=== PATIENT | female | born 1995 | race African-American/Black ===

== ENCOUNTER 2016-06-05 12:29 | Inpatient (IN) | payer OTHER ==
[~2016-06-05] VITALS: Ht 162.6 cm; Wt 76.2 kg
[2016-06-05] VITALS (27 sets, daily range): BP systolic 70–107; BP diastolic 39–53
[~2016-06-05 12:29] MED LIST: ALBU6.7H INH; INSU3INS6 SUBCUT; humalog SUBCUT
[2016-06-05] MEDS ORDERED: SODIUM CHLORIDE 0.9% 1000ML BAG (SEPSIS BOLUS) IV ONE ×2 (13:00→14:30)
[2016-06-05 13:25] LABS: HEMATOCRIT. 47.2 % (36.0-48.0); HEMOGLOBIN. 12.3 g/dL (12.0-16.0); MEAN CORPUSCULAR HEMOGLOBIN 28.2 pg (28.0-32.0); MEAN CORPUSCULAR HGB CONC 26.2 g/dL (31.0-37.0); MEAN CORPUSCULAR VOLUME 107.7 fL (81.0-99.0); MEAN PLATELET VOLUME 8.9 fl (7.4-10.4); PLATELET 345 x1000/uL (130-400); RED BLOOD CELL COUNT 4.38 mill/uL (4.2-5.4); RED CELL DISTRIBUTION WIDTH 15.1 % (11.6-14.6); WHITE BLOOD COUNT 28.3 x1000/uL (4.5-11.0)
[2016-06-05 13:26] LABS: CLARITY URINE CLOUDY (CLEAR); COLOR URINE YELLOW (YELLOW); GLUCOSE URINE 3+ (NEGATIVE); KETONES URINE 1+ (NEGATIVE); LEUKOCYTE ESTERASE URINE NEGATIVE (NEGATIVE); NITRITE URINE NEGATIVE (NEGATIVE); OCCULT BLOOD URINE 3+ (NEGATIVE); PROTEIN URINE 2+ (NEGATIVE); SPECIFIC GRAVITY URINE 1.029 (1.005-1.030); UROBILINOGEN URINE 0.2 E.U./dL (0.2-1.0)
[2016-06-05 13:27] LABS: DIFFERENTIAL COMMENT 1
[2016-06-05 13:32] LABS: INR 1.1; PROTHROMBIN TIME 11.8 sec
[2016-06-05 13:38] LABS: *AMPHETAMINES SCREEN URINE NEGATIVE (NEGATIVE); *BARBITURATES SCREEN URINE NEGATIVE (NEGATIVE); *BENZODIAZEPINES SCREEN URINE NEGATIVE (NEGATIVE); *COCAINE SCREEN URINE NEGATIVE (NEGATIVE); CANNABINOID URINE SCREEN NEGATIVE (NEGATIVE); ECSTASY MDMA SCREEN URINE NEGATIVE (NEGATIVE); METHADONE URINE SCREEN NEGATIVE (NEGATIVE); PHENCYCLIDINE URINE SCREEN NEGATIVE (NEGATIVE)
[2016-06-05 13:39] LABS: ANION GAP 35; CHLORIDE 95 mEq/L (98-107); UREA NITROGEN BLOOD 52 mg/dL (7-21)
[2016-06-05 13:40] LABS: ALANINE AMINOTRANSFERASE 37 IU/L (13-61); ALBUMIN 3.7 g/dL (3.4-5.0); CALCIUM 8.7 mg/dL (8.5-10.1); ETHANOL BLOOD < 10 mg/dL; INDEX HEMOLYSI 2 (1-3); INDEX ICTERIC 1 (1-4); INDEX LIPEMIC 1 (1-3); eGFR 28 mL/min (>60)
[2016-06-05 13:43] LABS: BACTERIA URINE 1+; OPIATES URINE SCREEN PRESUMTIVE POSITIVE (NEGATIVE); SQUAMOUS EPITHELIAL CELL URINE 1+ /lpf (RARE/1+)
[2016-06-05 13:44] LABS: CARBON DIOXIDE 5 mEq/L (21-32); LACTIC ACID 2.6 mmol/L (0.4-2.0)
[2016-06-05 13:45] LABS: RBC URINE 0-2 /hpf (0-2)
[2016-06-05] MEDS ORDERED: INSULIN REGULAR (DRIP) 100 UNITS in SODIUM CHLORIDE 0.9% 100 ML IV ONE (13:45)
[2016-06-05 13:47] LABS: ANISOCYTOSIS 1+; PLATELET ESTIMATE NORMAL
[2016-06-05] MEDS ORDERED: INSULIN REGULAR (DRIP) 100 UNITS in SODIUM CHLORIDE 0.9% 99 ML IV ONE (14:00)
[2016-06-05 14:19] LABS: BG BASE EXCESS -30.7 mmol/L (-2.0-2.0); BG CARBOXYHEMOGLOBIN 0.3 % (0.5-1.5); BG DEOXYHEMOGLOBIN 0.5 % (0.0-5.0); BG FRACTION INSPIRED OXYGEN 100; BG HCO3 ACT 2.6 mmol/L (22.0-26.0); BG METHEMOGLOBIN 0.5 % (0.0-1.5); BG OXYGEN SATURATION 99.5 % (92.0-98.5); BG OXYHEMOGLOBIN 98.7 % (94.0-97.0); BG PCO2 16.8 mmHg (35.0-45.0); BG PH 6.808 (7.350-7.450); BG PO2 350.8 mmHg (75.0-100.0); BG SAMPLE SITE RIGHT BRACHIAL; BG TOTAL HEMOGLOBIN 11.8 g/dL (12.0-18.0); BG VENT MODE MASK - NRB
[2016-06-05] MEDS ORDERED: ETOMIDATE 2MG/ML 10ML VIAL IV ONE (14:25)
[2016-06-05] MEDS ORDERED: SUCCINYLCHOLINE CHLORIDE 200MG/10ML VIAL IV ONE (14:25)
[2016-06-05] MEDS ORDERED: DOPAMINE 400MG PREMIX 250 ML IV NR (14:30)
[2016-06-05] MEDS ORDERED: SODIUM CHLORIDE 0.9% 1,000 ML IV STA (14:31)
[2016-06-05] MEDS ORDERED: INSULIN REGULAR (DRIP) 100 UNITS in SODIUM CHLORIDE 0.9% 100 ML IV NR (14:31)
[2016-06-05] MEDS ORDERED: FUROSEMIDE 100MG/10ML VIAL IV NR (14:31)
[2016-06-05] MEDS ORDERED: SODIUM POLYSTYRENE SULFONATE 15 G/60 ML BOT PO NR (14:45)
[2016-06-05] MEDS ORDERED: CALCIUM CHLORIDE 1000 MG in DEXTROSE 5% WATER 100 ML IV NR (14:45)
[2016-06-05] MEDS ORDERED: SODIUM CHLORIDE 0.9% 1,000 ML IV NR (14:45)
[2016-06-05] MEDS ORDERED: DEXTROSE 50% WATER 50ML SYRINGE IV NR (14:45)
[2016-06-05] MEDS ORDERED: SODIUM BICARBONATE 8.4% 1 MEQ/ML 50ML SYR IV NR (14:45)
[2016-06-05] MEDS ORDERED: SODIUM CHLORIDE 0.9% 1,000 ML IV SCH ×2 (14:45→18:15)
[2016-06-05] MEDS ORDERED: INSULIN REGULAR (HUMULIN R) 300UNITS/3ML IV NR (14:45)
[2016-06-05] MEDS ORDERED: CALCIUM CHLORIDE 1GM/10ML SYR IV ONE (14:45)
[2016-06-05] MEDS ORDERED: ALBUTEROL (0.083%) 2.5MG/3ML NEB HHN NR (14:45)
[2016-06-05 16:19] LABS: CALCIUM 7.5 mg/dL (8.5-10.1); MAGNESIUM 3.7 mg/dL (1.8-2.4); PHOSPHORUS 7.8 mg/dL (2.5-4.9)
[2016-06-05] MEDS ORDERED: NALOXONE HCL 1 MG/ML 2ML VIAL IV ONE (16:45)
[2016-06-05] MEDS ORDERED: SODIUM BICARBONATE 8.4% 1 MEQ/ML 50ML SYR IV ONE (16:45)
[2016-06-05 16:49] LABS: BG BASE EXCESS -22.7 mmol/L (-2.0-2.0); BG CARBOXYHEMOGLOBIN 0.3 % (0.5-1.5); BG DEOXYHEMOGLOBIN 1.2 % (0.0-5.0); BG FRACTION INSPIRED OXYGEN 24; BG HCO3 ACT 5.4 mmol/L (22.0-26.0); BG METHEMOGLOBIN 0.5 % (0.0-1.5); BG OXYGEN SATURATION 98.8 % (92.0-98.5); BG PCO2 18.5 mmHg (35.0-45.0); BG PH 7.082 (7.350-7.450); BG PO2 149.8 mmHg (75.0-100.0); BG SAMPLE SITE LEFT RADIAL; BG TOTAL HEMOGLOBIN 11.9 g/dL (12.0-18.0); BG VENT MODE NASAL CANNULA
[2016-06-05] MEDS ORDERED: DEXTROSE 50% WATER 50ML SYRINGE IV PRN ×2 (18:15→18:30)
[2016-06-05] MEDS ORDERED: INSULIN REGULAR (DRIP) 100 UNITS in SODIUM CHLORIDE 0.9% 99 ML IV PRN (18:15)
[2016-06-05] MEDS ORDERED: INSULIN REGULAR (DRIP) 100 UNITS in SODIUM CHLORIDE 0.9% 100 ML IV SCH (18:17)
[2016-06-05 18:37] LABS: CALCIUM 8.6 mg/dL (8.5-10.1); MAGNESIUM 3.2 mg/dL (1.8-2.4); PHOSPHORUS 4.7 mg/dL (2.5-4.9)
[2016-06-05] MEDS ORDERED: NOREPINEPHRINE 4 MG in DEXT 5% WATER 246 ML IV PRN (19:00)
[2016-06-05] MEDS ORDERED: POTASSIUM ACETATE 20 MEQ in SODIUM CHLORIDE 0.9% 1,000 ML IV SCH ×2 (19:00→19:14)
[2016-06-05 19:05] LABS: BG BASE EXCESS -25.2 mmol/L (-2.0-2.0); BG CARBOXYHEMOGLOBIN 0.3 % (0.5-1.5); BG FRACTION INSPIRED OXYGEN 40; BG HCO3 ACT 3.6 mmol/L (22.0-26.0); BG METHEMOGLOBIN 0.2 % (0.0-1.5); BG OXYHEMOGLOBIN 98.5 % (94.0-97.0); BG PH 7.032 (7.350-7.450); BG PO2 191.4 mmHg (75.0-100.0); BG SAMPLE SITE RIGHT RADIAL; BG TOTAL HEMOGLOBIN 12.5 g/dL (12.0-18.0); BG VENT MODE NASAL CPAP
[2016-06-05] MEDS: BLOOD SUGAR DIAGNOSTIC STRIP TEST SCH ×4 (20:06→23:44)
[2016-06-05] MEDS: ENOXAPARIN 30MG/0.3ML SYR SUBCUT SCH (20:07)
[2016-06-05 20:20] LABS: CALCIUM 8.6 mg/dL (8.5-10.1); PHOSPHORUS 2.1 mg/dL (2.5-4.9)
[2016-06-05] MEDS ORDERED: POTASSIUM CHLORIDE INJ 20 MEQ in DEXT 5% WATER 250 ML IV NR (21:00)
[2016-06-05] MEDS ORDERED: BLOOD SUGAR DIAGNOSTIC STRIP TEST SCH (21:00)
[2016-06-05] MEDS ORDERED: SODIUM CHL 0.9% + KCL 20MEQ/L 1,000 ML IV SCH (21:00)
[2016-06-05] MEDS: INSULIN REGULAR (DRIP) 100 UNITS in SODIUM CHLORIDE 0.9% 99 ML IV SCH (22:13)
[2016-06-05] MEDS: NOREPINEPHRINE 8 MG in DEXT 5% WATER 242 ML IV PRN (22:16)
[2016-06-05] MEDS ORDERED: PROPOFOL 10MG/ML 100ML 100 ML IV PRN (23:45)
[2016-06-05] MEDS ORDERED: PHENYLEPHRINE 10 MG in DEXT 5% WATER 249 ML IV PRN (23:45)
[2016-06-06] VITALS (97 sets, daily range): BP systolic 80–164; BP diastolic 41–94
[2016-06-06] MEDS: BLOOD SUGAR DIAGNOSTIC STRIP TEST SCH ×24 (00:23→23:00)
[2016-06-06] MEDS: FENTANYL CITRATE/PF 500 MCG in SODIUM CHLORIDE 0.9% 40 ML IV PRN ×2 (00:54→19:00)
[2016-06-06] MEDS: MIDAZOLAM HCL 50 MG in DEXTROSE 5% WATER 40 ML IV PRN ×2 (00:55→10:25)
[2016-06-06 01:27] LABS: CALCIUM 8.6 mg/dL (8.5-10.1)
[2016-06-06] MEDS: INSULIN REGULAR (DRIP) 100 UNITS in SODIUM CHLORIDE 0.9% 99 ML IV SCH ×3 (01:40→23:46)
[2016-06-06] MEDS ORDERED: POTASSIUM ACETATE IV SCH (02:00)
[2016-06-06] MEDS ORDERED: SODIUM BICARBONATE IV SCH (02:00)
[2016-06-06] MEDS ORDERED: [UNRECOGNIZED DRUG - OTHER] IV SCH (02:00)
[2016-06-06] MEDS: NOREPINEPHRINE 8 MG in DEXT 5% WATER 242 ML IV PRN ×2 (02:27→08:35)
[2016-06-06 04:27] LABS: CALCIUM 8.5 mg/dL (8.5-10.1)
[2016-06-06 04:45] LABS: TROPONIN I 2.1 ng/mL (0.00-0.04)
[2016-06-06] MEDS ORDERED: SODIUM BICARBONATE IV ONE (05:00)
[2016-06-06] MEDS ORDERED: POTASSIUM ACETATE IV ONE (05:00)
[2016-06-06] MEDS ORDERED: [UNRECOGNIZED DRUG - OTHER] IV ONE (05:00)
[2016-06-06] MEDS ORDERED: KCL 20MEQ/100ML PREMIX 100 ML IV NR (06:00)
[2016-06-06] MEDS ORDERED: [UNRECOGNIZED DRUG - REMARK] XX SCH (06:00)
[2016-06-06] MEDS: DEXT 5% WATER + KCL 20MEQ/L 1,000 ML IV SCH ×3 (06:15→18:43)
[2016-06-06 07:10] LABS: BG BASE EXCESS -7.4 mmol/L (-2.0-2.0); BG CARBOXYHEMOGLOBIN 0.3 % (0.5-1.5); BG DEOXYHEMOGLOBIN 0.6 % (0.0-5.0); BG HCO3 ACT 17.9 mmol/L (22.0-26.0); BG METHEMOGLOBIN 0.5 % (0.0-1.5); BG OXYGEN SATURATION 99.4 % (92.0-98.5); BG OXYHEMOGLOBIN 98.6 % (94.0-97.0); BG PCO2 35.7 mmHg (35.0-45.0); BG PH 7.318 (7.350-7.450); BG PO2 400.8 mmHg (75.0-100.0); BG SAMPLE SITE RIGHT RADIAL; BG TIDAL VOLUME(mL) 500 mL; BG TOTAL HEMOGLOBIN 11.8 g/dL (12.0-18.0); BG VENT MODE VENT - A/C; BG VENT RATE 12 set
[2016-06-06] MEDS: PHENYLEPHRINE 40 MG in DEXT 5% WATER 496 ML IV PRN ×2 (07:59→11:32)
[2016-06-06] MEDS: PIPERACILLIN/TAZ 3.375G PREMIX 50 ML IV SCH ×2 (08:03→13:09)
[2016-06-06 08:17] LABS: CALCIUM 8.1 mg/dL (8.5-10.1)
[2016-06-06] MEDS ORDERED: PANTOPRAZOLE SODIUM 40 MG/VIAL IV SCH (09:00)
[2016-06-06] MEDS ORDERED: VANCOMYCIN 1250MG in DEXTROSE 5% WATER 250ML IV NR (09:00)
[2016-06-06 09:54] LABS: CREATINE KINASE MB FRACTION 114.8 ng/mL (0.5-3.6)
[2016-06-06 10:05] LABS: HEMATOCRIT. 32.6 % (36.0-48.0); HEMOGLOBIN. 10.7 g/dL (12.0-16.0); MEAN CORPUSCULAR HEMOGLOBIN 27.6 pg (28.0-32.0); MEAN CORPUSCULAR HGB CONC 32.8 g/dL (31.0-37.0); MEAN PLATELET VOLUME 8.1 fl (7.4-10.4); PLATELET 241 x1000/uL (130-400); RED BLOOD CELL COUNT 3.88 mill/uL (4.2-5.4); RED CELL DISTRIBUTION WIDTH 13.9 % (11.6-14.6); WHITE BLOOD COUNT 8.7 x1000/uL (4.5-11.0)
[2016-06-06 10:11] LABS: DIFFERENTIAL COMMENT 1
[2016-06-06 10:42] LABS: PLATELET ESTIMATE NORMAL
[2016-06-06 12:00] LABS: UCG SCREEN NEGATIVE
[2016-06-06] MEDS ORDERED: POTASSIUM CHLORIDE INJ 20 MEQ in DEXT 5%/0.9% NACL 1,000 ML IV SCH (13:00)
[2016-06-06] MEDS: IPRATROPIUM/ALBUTEROL 0.5-3(2.5)MG/3ML NEB HHN SCH ×2 (13:38→20:09)
[2016-06-06] MEDS: PHENYLEPHRINE 80 MG in DEXT 5% WATER 492 ML IV PRN ×2 (15:45→23:02)
[2016-06-06] MEDS: CLINDAMYCIN 600 MG in DEXTROSE 5% WATER 50 ML IV SCH (17:51)
[2016-06-06] MEDS: MEROPENEM 1,000 MG in SODIUM CHLORIDE 0.9% 100 ML IV SCH (20:03)
[2016-06-06] MEDS: ENOXAPARIN 30MG/0.3ML SYR SUBCUT SCH (20:03)
[2016-06-07] VITALS (91 sets, daily range): BP systolic 70–123; BP diastolic 44–81
[2016-06-07] MEDS: BLOOD SUGAR DIAGNOSTIC STRIP TEST SCH ×24 (00:26→23:00)
[2016-06-07] MEDS: DEXT 5% WATER + KCL 20MEQ/L 1,000 ML IV SCH (01:04)
[2016-06-07] MEDS: CLINDAMYCIN 600 MG in DEXTROSE 5% WATER 50 ML IV SCH ×3 (01:05→17:52)
[2016-06-07] MEDS: IPRATROPIUM/ALBUTEROL 0.5-3(2.5)MG/3ML NEB HHN SCH ×3 (01:23→14:39)
[2016-06-07] MEDS ORDERED: VANCOMYCIN 1 G PREMIX 200 ML IV SCH ×2 (03:00→21:00)
[2016-06-07 05:15] LABS: HEMATOCRIT. 32.1 % (36.0-48.0); HEMOGLOBIN. 10.6 g/dL (12.0-16.0); MEAN CORPUSCULAR HEMOGLOBIN 28.1 pg (28.0-32.0); MEAN CORPUSCULAR HGB CONC 32.9 g/dL (31.0-37.0); MEAN CORPUSCULAR VOLUME 85.4 fL (81.0-99.0); MEAN PLATELET VOLUME 8.1 fl (7.4-10.4); PLATELET 161 x1000/uL (130-400); RED BLOOD CELL COUNT 3.75 mill/uL (4.2-5.4); RED CELL DISTRIBUTION WIDTH 14.9 % (11.6-14.6); WHITE BLOOD COUNT 12.1 x1000/uL (4.5-11.0)
[2016-06-07 05:16] LABS: DIFFERENTIAL COMMENT 1
[2016-06-07 05:37] LABS: CALCIUM 7.5 mg/dL (8.5-10.1); MAGNESIUM 1.9 mg/dL (1.8-2.4); PHOSPHORUS 1.4 mg/dL (2.5-4.9); T4 FREE 1.07 ng/dL (0.76-1.46)
[2016-06-07] MEDS: PHENYLEPHRINE 80 MG in DEXT 5% WATER 492 ML IV PRN ×3 (06:09→21:24)
[2016-06-07 07:24] LABS: BG BASE EXCESS -10.4 mmol/L (-2.0-2.0); BG CARBOXYHEMOGLOBIN 0.3 % (0.5-1.5); BG DEOXYHEMOGLOBIN 0.9 % (0.0-5.0); BG FRACTION INSPIRED OXYGEN 40; BG HCO3 ACT 14.8 mmol/L (22.0-26.0); BG METHEMOGLOBIN 0.1 % (0.0-1.5); BG OXYGEN SATURATION 99.1 % (92.0-98.5); BG OXYHEMOGLOBIN 98.7 % (94.0-97.0); BG PCO2 30.6 mmHg (35.0-45.0); BG PH 7.302 (7.350-7.450); BG PO2 179.5 mmHg (75.0-100.0); BG SAMPLE SITE RIGHT BRACHIAL; BG TIDAL VOLUME(mL) 500 mL; BG TOTAL HEMOGLOBIN 11.5 g/dL (12.0-18.0); BG VENT MODE VENT - A/C; BG VENT RATE 12 set
[2016-06-07 07:49] LABS: PLATELET ESTIMATE NORMAL
[2016-06-07] MEDS: MEROPENEM 1,000 MG in SODIUM CHLORIDE 0.9% 100 ML IV SCH ×2 (08:14→21:24)
[2016-06-07] MEDS: FAMOTIDINE 20MG/2ML VIAL IV SCH (08:24)
[2016-06-07] MEDS ORDERED: SODIUM PHOS,M-BASIC-D-BASIC 15 MM in DEXT 5% WATER 245 ML IV NR (09:00)
[2016-06-07] MEDS: SODIUM BICARBONATE 50 MEQ in DEXT 5%/0.45% NACL 1000ML 1,000 ML IV SCH ×2 (09:29→16:50)
[2016-06-07] MEDS: ASPIRIN 81MG EC TABLET PO SCH (10:05)
[2016-06-07 11:40] LABS: AMMONIA 26 uMol/L (<32); INDEX HEMOLYSI 1 (1-3)
[2016-06-07 11:48] LABS: T4 FREE 1.28 ng/dL (0.76-1.46)
[2016-06-07 11:50] LABS: T3 FREE 1.29 pg/ml (2.18-3.98); THYROID STIMULATING HORMONE 1.8 uIU/mL (0.36-3.74)
[2016-06-07 12:03] LABS: INDEX HEMOLYSI 1 (1-3)
[2016-06-07 12:42] LABS: VITAMIN B12 SERUM > 2000 pg/mL (211-911)
[2016-06-07] MEDS: INSULIN REGULAR (DRIP) 100 UNITS in SODIUM CHLORIDE 0.9% 99 ML IV SCH (14:36)
[2016-06-07 17:18] LABS: BG BASE EXCESS -17.3 mmol/L (-2.0-2.0); BG CARBOXYHEMOGLOBIN 0.3 % (0.5-1.5); BG DEOXYHEMOGLOBIN 9.8 % (0.0-5.0); BG FRACTION INSPIRED OXYGEN 50; BG HCO3 ACT 9.2 mmol/L (22.0-26.0); BG METHEMOGLOBIN 0.3 % (0.0-1.5); BG OXYGEN SATURATION 90.1 % (92.0-98.5); BG OXYHEMOGLOBIN 89.6 % (94.0-97.0); BG PCO2 24.7 mmHg (35.0-45.0); BG PO2 57.7 mmHg (75.0-100.0); BG SAMPLE SITE RIGHT RADIAL; BG TIDAL VOLUME(mL) 500 mL; BG VENT MODE VENT - A/C; BG VENT RATE 12 set
[2016-06-07] MEDS: MIDAZOLAM HCL 50 MG in DEXTROSE 5% WATER 40 ML IV PRN (18:15)
[2016-06-07] MEDS: NOREPINEPHRINE 8 MG in DEXT 5% WATER 242 ML IV PRN (19:25)
[2016-06-07] MEDS: ENOXAPARIN 30MG/0.3ML SYR SUBCUT SCH (21:30)
[2016-06-08] VITALS (90 sets, daily range): BP systolic 65–113; BP diastolic 35–76
[2016-06-08] MEDS: BLOOD SUGAR DIAGNOSTIC STRIP TEST SCH ×24 (00:52→23:57)
[2016-06-08] MEDS: SODIUM BICARBONATE 50 MEQ in DEXT 5%/0.45% NACL 1000ML 1,000 ML IV SCH ×4 (00:55→21:41)
[2016-06-08] MEDS: CLINDAMYCIN 600 MG in DEXTROSE 5% WATER 50 ML IV SCH ×3 (01:26→18:22)
[2016-06-08] MEDS: IPRATROPIUM/ALBUTEROL 0.5-3(2.5)MG/3ML NEB HHN SCH ×4 (02:00→20:33)
[2016-06-08] MEDS: PHENYLEPHRINE 80 MG in DEXT 5% WATER 492 ML IV PRN ×3 (05:02→19:59)
[2016-06-08 05:03] LABS: BASOPHILS % 0.4 % (0.0-2.0); DIFFERENTIAL COMMENT 0; EOSINOPHILS % 0.3 % (0.0-5.0); HEMATOCRIT. 33.3 % (36.0-48.0); LYMPHOCYTES % 11.3 % (20.0-50.0); MEAN CORPUSCULAR HEMOGLOBIN 27.8 pg (28.0-32.0); MEAN CORPUSCULAR VOLUME 84.2 fL (81.0-99.0); MEAN PLATELET VOLUME 8.1 fl (7.4-10.4); MONOCYTES % 5.3 % (2.0-8.0); NEUTROPHILS % 82.7 % (40.0-76.0); PLATELET 148 x1000/uL (130-400); RED BLOOD CELL COUNT 3.96 mill/uL (4.2-5.4); RED CELL DISTRIBUTION WIDTH 14.8 % (11.6-14.6); WHITE BLOOD COUNT 10.8 x1000/uL (4.5-11.0)
[2016-06-08 05:28] LABS: CALCIUM 7.8 mg/dL (8.5-10.1); MAGNESIUM 2.2 mg/dL (1.8-2.4)
[2016-06-08 06:04] LABS: TROPONIN I 8.7 ng/mL (0.00-0.04)
[2016-06-08 06:54] LABS: BG BASE EXCESS -4.8 mmol/L (-2.0-2.0); BG CARBOXYHEMOGLOBIN 0.1 % (0.5-1.5); BG DEOXYHEMOGLOBIN 1.2 % (0.0-5.0); BG HCO3 ACT 19.4 mmol/L (22.0-26.0); BG METHEMOGLOBIN 0.1 % (0.0-1.5); BG OXYGEN SATURATION 98.8 % (92.0-98.5); BG OXYHEMOGLOBIN 98.6 % (94.0-97.0); BG PCO2 32.8 mmHg (35.0-45.0); BG SAMPLE SITE RIGHT RADIAL; BG TIDAL VOLUME(mL) 500 mL; BG VENT MODE VENT - A/C; BG VENT RATE 12 set
[2016-06-08] MEDS: MEROPENEM 1,000 MG in SODIUM CHLORIDE 0.9% 100 ML IV SCH ×2 (07:44→20:58)
[2016-06-08] MEDS: FAMOTIDINE 20MG/2ML VIAL IV SCH (07:46)
[2016-06-08] MEDS: ASPIRIN 81MG EC TABLET PO SCH (07:46)
[2016-06-08] MEDS: INSULIN REGULAR (DRIP) 100 UNITS in SODIUM CHLORIDE 0.9% 99 ML IV SCH (10:16)
[2016-06-08] MEDS: VANCOMYCIN 1 G PREMIX 200 ML IV SCH (12:10)
[2016-06-08] MEDS ORDERED: POTASSIUM PHOS,M-BASIC-D-BASIC 20 MMOL in DEXT 5% WATER 243.3333 ML IV NR (14:00)
[2016-06-08 15:07] LABS: *CREATININE RANDOM URINE 33.3 mg/dL (Not Estab.); MICROALBUMIN RANDOM URINE 80.6 ug/mL (Not Estab.)
[2016-06-08] MEDS: ENOXAPARIN 30MG/0.3ML SYR SUBCUT SCH (20:58)
[2016-06-08] MEDS: MIDAZOLAM HCL 50 MG in DEXTROSE 5% WATER 40 ML IV PRN (22:07)
[2016-06-09] VITALS (89 sets, daily range): BP systolic 80–123; BP diastolic 40–82
[2016-06-09] MEDS: IPRATROPIUM/ALBUTEROL 0.5-3(2.5)MG/3ML NEB HHN SCH ×5 (01:05→20:56)
[2016-06-09] MEDS: CLINDAMYCIN 600 MG in DEXTROSE 5% WATER 50 ML IV SCH ×2 (01:06→09:31)
[2016-06-09] MEDS: BLOOD SUGAR DIAGNOSTIC STRIP TEST SCH ×14 (01:07→18:00)
[2016-06-09] MEDS: FENTANYL CITRATE/PF 500 MCG in SODIUM CHLORIDE 0.9% 40 ML IV PRN (04:03)
[2016-06-09] MEDS: MIDAZOLAM HCL 50 MG in DEXTROSE 5% WATER 40 ML IV PRN ×2 (04:40→20:29)
[2016-06-09] MEDS: PHENYLEPHRINE 80 MG in DEXT 5% WATER 492 ML IV PRN ×2 (04:40→13:54)
[2016-06-09 05:31] LABS: BASOPHILS % 0.1 % (0.0-2.0); EOSINOPHILS % 0.9 % (0.0-5.0); HEMATOCRIT. 29.8 % (36.0-48.0); LYMPHOCYTES % 13.5 % (20.0-50.0); MEAN CORPUSCULAR HEMOGLOBIN 28.1 pg (28.0-32.0); MEAN CORPUSCULAR HGB CONC 33.7 g/dL (31.0-37.0); MEAN CORPUSCULAR VOLUME 83.3 fL (81.0-99.0); MEAN PLATELET VOLUME 8.4 fl (7.4-10.4); NEUTROPHILS % 79.5 % (40.0-76.0); PLATELET 138 x1000/uL (130-400); RED BLOOD CELL COUNT 3.57 mill/uL (4.2-5.4); RED CELL DISTRIBUTION WIDTH 14.8 % (11.6-14.6); WHITE BLOOD COUNT 9.7 x1000/uL (4.5-11.0)
[2016-06-09] MEDS: SODIUM BICARBONATE 50 MEQ in DEXT 5%/0.45% NACL 1000ML 1,000 ML IV SCH (05:33)
[2016-06-09 05:42] LABS: CALCIUM 7.7 mg/dL (8.5-10.1); PHOSPHORUS 1.4 mg/dL (2.5-4.9)
[2016-06-09] MEDS: VANCOMYCIN 1 G PREMIX 200 ML IV SCH (06:13)
[2016-06-09 07:06] LABS: BG BASE EXCESS -0.6 mmol/L (-2.0-2.0); BG CARBOXYHEMOGLOBIN 0.3 % (0.5-1.5); BG DEOXYHEMOGLOBIN 1.6 % (0.0-5.0); BG METHEMOGLOBIN 0.2 % (0.0-1.5); BG OXYGEN SATURATION 98.4 % (92.0-98.5); BG OXYHEMOGLOBIN 97.9 % (94.0-97.0); BG PCO2 34.2 mmHg (35.0-45.0); BG PH 7.446 (7.350-7.450); BG PO2 135.7 mmHg (75.0-100.0); BG SAMPLE SITE RIGHT RADIAL; BG TIDAL VOLUME(mL) 500 mL; BG TOTAL HEMOGLOBIN 10.8 g/dL (12.0-18.0); BG VENT MODE VENT - A/C; BG VENT RATE 12 set
[2016-06-09] MEDS: INSULIN REGULAR (DRIP) 100 UNITS in SODIUM CHLORIDE 0.9% 99 ML IV SCH (09:03)
[2016-06-09] MEDS: MEROPENEM 1,000 MG in SODIUM CHLORIDE 0.9% 100 ML IV SCH ×2 (09:03→20:29)
[2016-06-09] MEDS: ASPIRIN 81MG EC TABLET PO SCH (09:05)
[2016-06-09] MEDS: FAMOTIDINE 20MG/2ML VIAL IV SCH ×2 (09:05→20:29)
[2016-06-09] MEDS ORDERED: POTASSIUM PHOS,M-BASIC-D-BASIC 20 MMOL in DEXT 5% WATER 243.3333 ML IV SCH (11:00)
[2016-06-09] MEDS ORDERED: SODIUM CHLORIDE 0.45% 1,000 ML IV SCH (12:30)
[2016-06-09] MEDS ORDERED: POTASSIUM CHLORIDE 20 MEQ/PACKET NG NR (13:00)
[2016-06-09] MEDS: DEXTROSE 50% WATER 50ML SYRINGE IV PRN (18:37)
[2016-06-09] MEDS: ENOXAPARIN 40MG/0.4ML SYR SUBCUT SCH (20:30)
[2016-06-10] VITALS (84 sets, daily range): BP systolic 84–132; BP diastolic 24–81
[2016-06-10] MEDS: VANCOMYCIN 1 G PREMIX 200 ML IV SCH (00:12)
[2016-06-10] MEDS: BLOOD SUGAR DIAGNOSTIC STRIP TEST SCH ×10 (00:39→20:23)
[2016-06-10 05:35] LABS: HEMATOCRIT. 26.8 % (36.0-48.0); HEMOGLOBIN. 8.8 g/dL (12.0-16.0); MEAN CORPUSCULAR HEMOGLOBIN 27.8 pg (28.0-32.0); MEAN CORPUSCULAR HGB CONC 32.8 g/dL (31.0-37.0); MEAN CORPUSCULAR VOLUME 84.7 fL (81.0-99.0); MEAN PLATELET VOLUME 8.6 fl (7.4-10.4); PLATELET 147 x1000/uL (130-400); RED BLOOD CELL COUNT 3.16 mill/uL (4.2-5.4); RED CELL DISTRIBUTION WIDTH 15.3 % (11.6-14.6); WHITE BLOOD COUNT 5.5 x1000/uL (4.5-11.0)
[2016-06-10 06:21] LABS: DIFFERENTIAL COMMENT 1
[2016-06-10] MEDS: MIDAZOLAM HCL 50 MG in DEXTROSE 5% WATER 40 ML IV PRN (07:15)
[2016-06-10 07:38] LABS: MAGNESIUM 2.2 mg/dL (1.8-2.4)
[2016-06-10 07:55] LABS: PLATELET ESTIMATE NORMAL
[2016-06-10 08:03] LABS: BG BASE EXCESS 0.6 mmol/L (-2.0-2.0); BG CARBOXYHEMOGLOBIN 0.3 % (0.5-1.5); BG DEOXYHEMOGLOBIN 1.6 % (0.0-5.0); BG FRACTION INSPIRED OXYGEN 30; BG HCO3 ACT 24.5 mmol/L (22.0-26.0); BG METHEMOGLOBIN 0.3 % (0.0-1.5); BG OXYGEN SATURATION 98.4 % (92.0-98.5); BG OXYHEMOGLOBIN 97.8 % (94.0-97.0); BG PCO2 36.8 mmHg (35.0-45.0); BG PH 7.442 (7.350-7.450); BG PO2 119.3 mmHg (75.0-100.0); BG SAMPLE SITE RIGHT RADIAL; BG TIDAL VOLUME(mL) 500 mL; BG TOTAL HEMOGLOBIN 10.6 g/dL (12.0-18.0); BG VENT MODE VENT - A/C; BG VENT RATE 12 set
[2016-06-10] MEDS: IPRATROPIUM/ALBUTEROL 0.5-3(2.5)MG/3ML NEB HHN SCH ×3 (08:20→20:38)
[2016-06-10] MEDS: MEROPENEM 1,000 MG in SODIUM CHLORIDE 0.9% 100 ML IV SCH ×2 (08:48→20:21)
[2016-06-10] MEDS: ASPIRIN 81MG EC TABLET PO SCH (08:48)
[2016-06-10] MEDS: FAMOTIDINE 20MG/2ML VIAL IV SCH ×2 (08:48→20:22)
[2016-06-10] MEDS: INSULIN REGULAR (DRIP) 100 UNITS in SODIUM CHLORIDE 0.9% 99 ML IV SCH (09:59)
[2016-06-10] MEDS ORDERED: FENTANYL CITRATE/PF 500 MCG in SODIUM CHLORIDE 0.9% 40 ML IV PRN (11:11)
[2016-06-10] MEDS ORDERED: LORAZEPAM 2MG/ML CPJ IV PRN (11:15)
[2016-06-10] MEDS ORDERED: MORPHINE SULFATE 2 MG/ML CPJ (NOT FOR IM USE) IV PRN (11:15)
[2016-06-10] MEDS: PHENYLEPHRINE 80 MG in DEXT 5% WATER 492 ML IV PRN (11:41)
[2016-06-10] MEDS ORDERED: DEXTROSE 50% WATER 50ML SYRINGE IV PRN (13:15)
[2016-06-10] MEDS: INSULIN LISPRO 100 UNITS/ML SUBCUT SCH ×3 (13:20→20:32)
[2016-06-10] MEDS ORDERED: INSULIN DETEMIR UD 100 UNITS/ML SYR SUBCUT NR (14:00)
[2016-06-10 17:02] LABS: BG BASE EXCESS -1.4 mmol/L (-2.0-2.0); BG CARBOXYHEMOGLOBIN 0.3 % (0.5-1.5); BG FRACTION INSPIRED OXYGEN 30; BG HCO3 ACT 21.8 mmol/L (22.0-26.0); BG METHEMOGLOBIN 0.3 % (0.0-1.5); BG OXYHEMOGLOBIN 96.4 % (94.0-97.0); BG PCO2 31.5 mmHg (35.0-45.0); BG PH 7.459 (7.350-7.450); BG PO2 96.3 mmHg (75.0-100.0); BG PRESSURE SUPPORT 6; BG SAMPLE SITE RIGHT RADIAL; BG TOTAL HEMOGLOBIN 9.9 g/dL (12.0-18.0); BG VENT MODE VENT - CPAP
[2016-06-10] MEDS: VANCOMYCIN 1250MG in DEXTROSE 5% WATER 250ML IV SCH (17:07)
[2016-06-10] MEDS ORDERED: BLOOD SUGAR DIAGNOSTIC STRIP TEST SCH (17:50)
[2016-06-10] MEDS: ENOXAPARIN 40MG/0.4ML SYR SUBCUT SCH (20:22)
[2016-06-10] MEDS: MORPHINE SULFATE 2 MG/ML CPJ (NOT FOR IM USE) IV PRN (20:57)
[2016-06-11] VITALS (43 sets, daily range): BP systolic 81–135; BP diastolic 40–84
[2016-06-11] MEDS: MORPHINE SULFATE 2 MG/ML CPJ (NOT FOR IM USE) IV PRN (01:00)
[2016-06-11] MEDS: IPRATROPIUM/ALBUTEROL 0.5-3(2.5)MG/3ML NEB HHN SCH ×5 (01:49→21:33)
[2016-06-11 05:43] LABS: HEMATOCRIT. 26.3 % (36.0-48.0); HEMOGLOBIN. 8.9 g/dL (12.0-16.0); MEAN CORPUSCULAR HEMOGLOBIN 28.4 pg (28.0-32.0); MEAN CORPUSCULAR HGB CONC 33.9 g/dL (31.0-37.0); MEAN CORPUSCULAR VOLUME 83.9 fL (81.0-99.0); MEAN PLATELET VOLUME 8.5 fl (7.4-10.4); PLATELET 215 x1000/uL (130-400); RED BLOOD CELL COUNT 3.14 mill/uL (4.2-5.4); RED CELL DISTRIBUTION WIDTH 14.9 % (11.6-14.6); WHITE BLOOD COUNT 4.4 x1000/uL (4.5-11.0)
[2016-06-11 05:44] LABS: DIFFERENTIAL COMMENT 1
[2016-06-11 06:31] LABS: CALCIUM 8.1 mg/dL (8.5-10.1); MAGNESIUM 2.2 mg/dL (1.8-2.4); PHOSPHORUS 2.1 mg/dL (2.5-4.9)
[2016-06-11 07:03] LABS: PLATELET ESTIMATE NORMAL
[2016-06-11] MEDS ORDERED: POTASSIUM PHOS,M-BASIC-D-BASIC 10 MMOL in DEXT 5% WATER 246.6667 ML IV ONE (07:30)
[2016-06-11] MEDS: BLOOD SUGAR DIAGNOSTIC STRIP TEST SCH ×4 (07:41→21:55)
[2016-06-11] MEDS: MEROPENEM 1,000 MG in SODIUM CHLORIDE 0.9% 100 ML IV SCH (08:12)
[2016-06-11] MEDS: ASPIRIN 81MG EC TABLET PO SCH (08:12)
[2016-06-11] MEDS: FAMOTIDINE 20MG/2ML VIAL IV SCH ×2 (08:12→22:06)
[2016-06-11] MEDS: INSULIN LISPRO 100 UNITS/ML SUBCUT SCH ×4 (08:14→17:50)
[2016-06-11] MEDS: VANCOMYCIN 1250MG in DEXTROSE 5% WATER 250ML IV SCH (12:17)
[2016-06-11] MEDS ORDERED: INSULIN LISPRO 100 UNITS/ML SUBCUT SCH ×4 (12:30→18:10)
[2016-06-11] MEDS ORDERED: INSULIN DETEMIR UD 100 UNITS/ML SYR SUBCUT SCH (13:00)
[2016-06-11] MEDS ORDERED: LEVOFLOXACIN 500MG TABLET PO NR (14:30)
[2016-06-11] MEDS: DEXTROSE 50% WATER 50ML SYRINGE IV PRN (18:53)
[2016-06-11] MEDS ORDERED: ALBUTEROL 6.7GM HFA INHALER INH SCH (21:00)
[2016-06-11] MEDS: ENOXAPARIN 40MG/0.4ML SYR SUBCUT SCH (22:06)
[2016-06-11] MEDS: INSULIN DETEMIR UD 100 UNITS/ML SYR SUBCUT SCH (22:51)
[2016-06-12] VITALS (7 sets, daily range): BP systolic 91–112; BP diastolic 50–74
[2016-06-12 02:13] LABS: HCG SCREEN NEGATIVE
[2016-06-12] MEDS: BLOOD SUGAR DIAGNOSTIC STRIP TEST SCH ×5 (03:35→21:00)
[2016-06-12] MEDS: ACETAMINOPHEN 650MG/20.3ML UDC PO PRN ×3 (03:36→21:05)
[2016-06-12 07:09] LABS: HEMATOCRIT. 25.9 % (36.0-48.0); HEMOGLOBIN. 8.6 g/dL (12.0-16.0); MEAN CORPUSCULAR HEMOGLOBIN 27.5 pg (28.0-32.0); MEAN CORPUSCULAR HGB CONC 33.2 g/dL (31.0-37.0); MEAN CORPUSCULAR VOLUME 82.6 fL (81.0-99.0); MEAN PLATELET VOLUME 8.2 fl (7.4-10.4); PLATELET 315 x1000/uL (130-400); RED BLOOD CELL COUNT 3.14 mill/uL (4.2-5.4); RED CELL DISTRIBUTION WIDTH 15.1 % (11.6-14.6); WHITE BLOOD COUNT 4.7 x1000/uL (4.5-11.0)
[2016-06-12] MEDS: IPRATROPIUM/ALBUTEROL 0.5-3(2.5)MG/3ML NEB HHN SCH ×3 (07:49→20:05)
[2016-06-12 08:15] LABS: DIFFERENTIAL COMMENT 1
[2016-06-12 08:24] LABS: CALCIUM 7.9 mg/dL (8.5-10.1); MAGNESIUM 2.2 mg/dL (1.8-2.4); PHOSPHORUS 3.4 mg/dL (2.5-4.9)
[2016-06-12] MEDS: ASPIRIN 81MG EC TABLET PO SCH (08:32)
[2016-06-12] MEDS: FAMOTIDINE 20MG/2ML VIAL IV SCH ×2 (08:32→21:05)
[2016-06-12] MEDS: MORPHINE SULFATE 2 MG/ML CPJ (NOT FOR IM USE) IV PRN (08:33)
[2016-06-12] MEDS: INSULIN LISPRO 100 UNITS/ML SUBCUT SCH ×3 (08:34→17:40)
[2016-06-12] MEDS: LEVOFLOXACIN 250MG TABLET PO SCH (11:48)
[2016-06-12] MEDS: SODIUM CHLORIDE 0.45% 1,000 ML IV SCH ×2 (11:51→22:12)
[2016-06-12] MEDS ORDERED: DIATR MEGLU/DIATRIZOATE SOLN 30ML PO NR (15:45)
[2016-06-12] MEDS: ENOXAPARIN 40MG/0.4ML SYR SUBCUT SCH (21:06)
[2016-06-12] MEDS: INSULIN DETEMIR UD 100 UNITS/ML SYR SUBCUT SCH (22:12)
[2016-06-12 22:24] LABS: ANISOCYTOSIS 1+; PLATELET ESTIMATE NORMAL
[2016-06-13] VITALS: BP 117/78
[2016-06-13] MEDS: IPRATROPIUM/ALBUTEROL 0.5-3(2.5)MG/3ML NEB HHN SCH ×4 (01:15→20:58)
[2016-06-13] MEDS: BLOOD SUGAR DIAGNOSTIC STRIP TEST SCH ×5 (03:09→21:27)
[2016-06-13 04:00] VITALS: BP 111/70
[2016-06-13 06:45] LABS: HEMATOCRIT. 26.3 % (36.0-48.0); HEMOGLOBIN. 8.6 g/dL (12.0-16.0); MEAN CORPUSCULAR HEMOGLOBIN 27.1 pg (28.0-32.0); MEAN CORPUSCULAR HGB CONC 32.8 g/dL (31.0-37.0); MEAN CORPUSCULAR VOLUME 82.5 fL (81.0-99.0); MEAN PLATELET VOLUME 7.9 fl (7.4-10.4); PLATELET 357 x1000/uL (130-400); RED BLOOD CELL COUNT 3.18 mill/uL (4.2-5.4); RED CELL DISTRIBUTION WIDTH 15.5 % (11.6-14.6); WHITE BLOOD COUNT 4.3 x1000/uL (4.5-11.0)
[2016-06-13 07:49] LABS: DIFFERENTIAL COMMENT 1
[2016-06-13 08:00] VITALS: BP 100/60
[2016-06-13] MEDS: FAMOTIDINE 20MG/2ML VIAL IV SCH ×2 (08:15→21:25)
[2016-06-13] MEDS: ACETAMINOPHEN 650MG/20.3ML UDC PO PRN (08:15)
[2016-06-13] MEDS: ASPIRIN 81MG EC TABLET PO SCH (08:15)
[2016-06-13] MEDS: INSULIN LISPRO 100 UNITS/ML SUBCUT SCH ×3 (08:17→18:04)
[2016-06-13] MEDS: LEVOFLOXACIN 250MG TABLET PO SCH (11:27)
[2016-06-13 12:00] VITALS: BP 109/72
[2016-06-13 13:23] LABS: NUCLEATED RED BLOOD CELLS 1 /100 WBC; PLATELET ESTIMATE NORMAL
[2016-06-13 16:00] VITALS: BP 99/65
[2016-06-13 20:00] VITALS: BP 111/74
[2016-06-13] MEDS: ENOXAPARIN 40MG/0.4ML SYR SUBCUT SCH (21:26)
[2016-06-13] MEDS: INSULIN DETEMIR UD 100 UNITS/ML SYR SUBCUT SCH (21:27)
[2016-06-14] VITALS: BP 113/83
[2016-06-14] MEDS: IPRATROPIUM/ALBUTEROL 0.5-3(2.5)MG/3ML NEB HHN SCH ×2 (02:30→08:10)
[2016-06-14] MEDS: BLOOD SUGAR DIAGNOSTIC STRIP TEST SCH ×3 (02:57→13:17)
[2016-06-14 04:00] VITALS: BP 105/68
[2016-06-14 06:12] LABS: HEMATOCRIT. 24.6 % (36.0-48.0); HEMOGLOBIN. 8.3 g/dL (12.0-16.0); MEAN CORPUSCULAR HEMOGLOBIN 27.4 pg (28.0-32.0); MEAN CORPUSCULAR HGB CONC 33.6 g/dL (31.0-37.0); MEAN CORPUSCULAR VOLUME 81.6 fL (81.0-99.0); MEAN PLATELET VOLUME 7.5 fl (7.4-10.4); PLATELET 391 x1000/uL (130-400); RED BLOOD CELL COUNT 3.01 mill/uL (4.2-5.4); WHITE BLOOD COUNT 4.5 x1000/uL (4.5-11.0)
[2016-06-14 06:18] LABS: DIFFERENTIAL COMMENT 1
[2016-06-14 07:07] LABS: CALCIUM 8.2 mg/dL (8.5-10.1)
[2016-06-14] MEDS: INSULIN LISPRO 100 UNITS/ML SUBCUT SCH (07:40)
[2016-06-14 08:00] VITALS: BP 98/59
[2016-06-14] MEDS: ASPIRIN 81MG EC TABLET PO SCH (09:01)
[2016-06-14] MEDS: FAMOTIDINE 20MG/2ML VIAL IV SCH (09:01)
[2016-06-14 11:04] LABS: PLATELET ESTIMATE NORMAL
[2016-06-14] MEDS: LEVOFLOXACIN 250MG TABLET PO SCH (11:04)
[2016-06-14 12:00] VITALS: BP 106/71
[2016-06-14 12:01] VITALS: BP 100/59
== END 2016-06-14 14:20 | disposition home or self-care (01) | DRG 710 ==
LOC: ER 12:32 → CVICU 17:18 → 7WST 06-11 18:09
PROVIDERS: ADMIT Internal Medicine; ATTEND Internal Medicine
PROC: 5A1955Z Respiratory Ventilation, Greater than 96 Consecutive Hours (ICD-10-PCS; principal; 2016-06-05)
PROC: 02H633Z Insertion of Infusion Device into Right Atrium, Percutaneous Approach (ICD-10-PCS; 2016-06-05)
PROC: B244ZZZ Ultrasonography of Right Heart (ICD-10-PCS; 2016-06-05)
PROC: 0BH17EZ Insertion of Endotracheal Airway into Trachea, Via Natural or Artificial Opening (ICD-10-PCS; 2016-06-05)
DX: A41.59 Other Gram-negative sepsis (principal); I21.4 Non-ST elevation (NSTEMI) myocardial infarction; N17.0 Acute kidney failure with tubular necrosis; J96.01 Acute respiratory failure with hypoxia; R65.21 Severe sepsis with septic shock; J15.212 Pneumonia due to Methicillin resistant Staphylococcus aureus; G92 Toxic encephalopathy; E10.10 Type 1 diabetes mellitus with ketoacidosis without coma; E86.0 Dehydration; E87.5 Hyperkalemia; B96.89 Other specified bacterial agents as the cause of diseases classified elsewhere; E87.1 Hypo-osmolality and hyponatremia; D64.9 Anemia, unspecified; D72.819 Decreased white blood cell count, unspecified; E83.39 Other disorders of phosphorus metabolism; E83.51 Hypocalcemia; I10 Essential (primary) hypertension; J45.909 Unspecified asthma, uncomplicated; M62.82 Rhabdomyolysis; I25.2 Old myocardial infarction; Z91.012 Allergy to eggs
CPT/HCPCS: 36415; 36569; 36600; 70450; 70551; 71010; 74176; 76770; 76937; 80048; 80053; 80202; 80305; 81001; 81025; 82043; 82140; 82306; 82375; 82533; 82550; 82553; 82570; 82607; 82746; 82805; 82962; 83036; 83605; 83690; 83735; 84100; 84145; 84439; 84443; 84478; 84481; 84484; 84703; 85025; 85379; 85610; 87040; 87070; 87077; 87086; 87186; 92610; 93005; 93306; 93970; 94002; 94003; 94640; 94664; 97112; 97116; 97162; A6261; C1725; C9113; G0482; J0330; J1265; J1650; J1815; J2060; J2185; J2250; J2270; J2310; J2370; J2543; J3010; J3370; J3480; J3490; J7030; J7050; J7060; J7611; J7620; Q9963

== ENCOUNTER 2016-06-24 09:17 | Emergency (ER) | payer OTHER ==
[~2016-06-24] VITALS: Ht 160 cm; Wt 64.0 kg
[2016-06-24] MEDS ORDERED: KETOROLAC 60MG/2ML VIAL IM ONE (10:45)
[2016-06-24 12:35] VITALS: BP 124/77
== END 2016-06-24 13:02 | disposition home or self-care (01) ==
LOC: ER 10:54
DX: M79.604 Pain in right leg (principal); M79.605 Pain in left leg; E11.9 Type 2 diabetes mellitus without complications; J45.909 Unspecified asthma, uncomplicated; Z79.4 Long term (current) use of insulin; Z91.012 Allergy to eggs
CPT/HCPCS: 81025; 82962; 96372; 99283; J1885

== ENCOUNTER 2016-06-25 10:08 | Emergency (ER) | payer OTHER ==
[~2016-06-25] VITALS: Ht 167.6 cm; Wt 70.0 kg
[2016-06-25] MEDS ORDERED: KETOROLAC 60MG/2ML VIAL IM ONE (12:00)
[2016-06-25] MEDS ORDERED: SODIUM CHLORIDE 0.9% 1,000 ML IV ONE (14:00)
[2016-06-25] MEDS ORDERED: GABAPENTIN 100MG CAPSULE PO ONE (14:15)
[2016-06-25] MEDS ORDERED: LORAZEPAM 0.5MG TABLET PO ONE (16:00)
[2016-06-25 16:45] VITALS: BP 146/85
== END 2016-06-25 16:45 | disposition home or self-care (01) ==
LOC: ER 10:34
DX: M79.671 Pain in right foot (principal); M79.672 Pain in left foot; E11.9 Type 2 diabetes mellitus without complications; J45.909 Unspecified asthma, uncomplicated; Z79.4 Long term (current) use of insulin; Z91.012 Allergy to eggs
CPT/HCPCS: 36415; 73630; 81025; 82962; 85379; 96361; 96374; 99285; J1885; J7030; Z7610

== ENCOUNTER 2016-08-22 08:35 | Emergency (ER) | payer OTHER ==
[~2016-08-22] VITALS: Ht 165.1 cm; Wt 55.0 kg
[2016-08-22 09:08] LABS: BASOPHILS % 0.4 % (0.0-2.0); EOSINOPHILS % 0.7 % (0.0-5.0); HEMATOCRIT. 36.8 % (36.0-48.0); HEMOGLOBIN. 11.9 g/dL (12.0-16.0); LYMPHOCYTES % 15.1 % (20.0-50.0); MEAN CORPUSCULAR HEMOGLOBIN 27.4 pg (28.0-32.0); MEAN CORPUSCULAR HGB CONC 32.4 g/dL (31.0-37.0); MEAN CORPUSCULAR VOLUME 84.6 fL (81.0-99.0); MEAN PLATELET VOLUME 8.4 fl (7.4-10.4); MONOCYTES % 3.5 % (2.0-8.0); NEUTROPHILS % 80.3 % (40.0-76.0); PLATELET 348 x1000/uL (130-400); RED BLOOD CELL COUNT 4.35 mill/uL (4.2-5.4); RED CELL DISTRIBUTION WIDTH 16.3 % (11.6-14.6); WHITE BLOOD COUNT 7.1 x1000/uL (4.5-11.0)
[2016-08-22 09:10] LABS: BG BASE EXCESS -7.6 mmol/L (-2.0-2.0); BG CARBOXYHEMOGLOBIN 0.1 % (0.5-1.5); BG DEOXYHEMOGLOBIN 2.3 % (0.0-5.0); BG FRACTION INSPIRED OXYGEN 21; BG HCO3 ACT 15.7 mmol/L (22.0-26.0); BG METHEMOGLOBIN 0.2 % (0.0-1.5); BG OXYGEN SATURATION 97.7 % (92.0-98.5); BG OXYHEMOGLOBIN 97.4 % (94.0-97.0); BG PCO2 26.2 mmHg (35.0-45.0); BG PH 7.395 (7.350-7.450); BG PO2 105.5 mmHg (75.0-100.0); BG SAMPLE SITE LEFT BRACHIAL; BG TOTAL HEMOGLOBIN 12.6 g/dL (12.0-18.0); BG VENT MODE ROOM AIR
[2016-08-22] MEDS: SODIUM CHLORIDE 0.9% 1,000 ML IV ONE ×2 (09:15→10:44)
[2016-08-22 09:23] LABS: ALANINE AMINOTRANSFERASE 15 IU/L (13-61); ANION GAP 22; CALCIUM 9.8 mg/dL (8.5-10.1); CARBON DIOXIDE 16 mEq/L (21-32); CHLORIDE 102 mEq/L (98-107); INDEX HEMOLYSI 1 (1-3); INDEX ICTERIC 1 (1-4); INDEX LIPEMIC 1 (1-3); UREA NITROGEN BLOOD 14 mg/dL (7-21); eGFR > 60 mL/min (>60)
[2016-08-22 09:25] LABS: BETA HYDROXYBUTYRATE 2.9 mMol/L (0.0-0.3)
[2016-08-22 09:26] LABS: CLARITY URINE CLEAR (CLEAR); COLOR URINE YELLOW (YELLOW); GLUCOSE URINE 3+ (NEGATIVE); KETONES URINE 3+ (NEGATIVE); LEUKOCYTE ESTERASE URINE NEGATIVE (NEGATIVE); NITRITE URINE NEGATIVE (NEGATIVE); OCCULT BLOOD URINE NEGATIVE (NEGATIVE); PH URINE 5.5 (4.5-8.0); PROTEIN URINE NEGATIVE (NEGATIVE); SPECIFIC GRAVITY URINE 1.032 (1.005-1.030); UROBILINOGEN URINE 0.2 E.U./dL (0.2-1.0)
[2016-08-22 09:39] LABS: BACTERIA URINE TRACE; RBC URINE NONE SEEN /hpf (0-2); SQUAMOUS EPITHELIAL CELL URINE 2+ /lpf (RARE/1+); WBC URINE 0-2 /hpf (0-2)
[2016-08-22 09:40] LABS: YEAST URINE 1+
[2016-08-22] MEDS: INSULIN REGULAR (HUMULIN R) 300UNITS/3ML IV ONE (10:42)
[2016-08-22] MEDS ORDERED: INSULIN REGULAR (HUMULIN R) 300UNITS/3ML IV ONE (11:15)
[2016-08-22 12:13] VITALS: BP 103/45
[2016-08-22] MEDS ORDERED: SODIUM CHLORIDE 0.9% 10ML VIAL ONE (14:10)
[2016-08-22] MEDS ORDERED: IOHEXOL-350 100 ML BOTTLE ONE (14:10)
== END 2016-08-22 13:15 | disposition home or self-care (01) ==
LOC: ER 08:36
DX: R07.9 Chest pain, unspecified (principal); R11.2 Nausea with vomiting, unspecified; E11.65 Type 2 diabetes mellitus with hyperglycemia; J45.909 Unspecified asthma, uncomplicated; Z79.4 Long term (current) use of insulin; Z91.012 Allergy to eggs
CPT/HCPCS: 36415; 36600; 71010; 71275; 80053; 81001; 81025; 82010; 82375; 82805; 82962; 85025; 85379; 93005; 96361; 96374; 99285; A4216; J1815; J7030; Q9967; Z7610

== ENCOUNTER 2020-02-20 09:48 | Emergency (ER) | payer MEDICAID, OTHER ==
[~2020-02-20] VITALS: Ht 170.2 cm; Wt 75.0 kg
[~2020-02-20 09:48] MED LIST changes: -ALBU6.7H INH; +ALBU6.7H11 INH
[2020-02-20] MEDS ORDERED: SODIUM CHLORIDE 0.9% 1,000 ML IV ONE ×2 (10:30→11:30)
[2020-02-20 10:42] LABS: BASOPHILS % 0.3 % (0.0-2.0); EOSINOPHILS % 0.4 % (0.0-5.0); HEMOGLOBIN. 9.8 g/dL (12.0-16.0); MEAN CORPUSCULAR HEMOGLOBIN 27.4 pg (28.0-32.0); MEAN PLATELET VOLUME 8.2 fl (7.4-10.4); MONOCYTES % 7.7 % (2.0-8.0); NEUTROPHILS % 76.6 % (40.0-76.0); PLATELET 268 x1000/uL (130-400); RED BLOOD CELL COUNT 3.57 mill/uL (4.2-5.4); RED CELL DISTRIBUTION WIDTH 14.9 % (11.6-14.6)
[2020-02-20 10:49] LABS: CHLORIDE 108 mEq/L (98-107)
[2020-02-20 13:33] LABS: CLARITY URINE CLEAR (CLEAR); COLOR URINE YELLOW (YELLOW); KETONES URINE NEGATIVE (NEGATIVE); LEUKOCYTE ESTERASE URINE NEGATIVE (NEGATIVE); NITRITE URINE NEGATIVE (NEGATIVE); OCCULT BLOOD URINE NEGATIVE (NEGATIVE); PH URINE 6.5 (4.5-8.0); PROTEIN URINE 1+ (NEGATIVE); SPECIFIC GRAVITY URINE 1.034 (1.005-1.030)
[2020-02-20 14:46] VITALS: BP 108/72
== END 2020-02-20 15:00 | disposition home or self-care (01) ==
LOC: ER 09:56
DX: R55 Syncope and collapse (principal); E10.65 Type 1 diabetes mellitus with hyperglycemia; J45.909 Unspecified asthma, uncomplicated; Z79.4 Long term (current) use of insulin
CPT/HCPCS: 36415; 71045; 80053; 81003; 82962; 84484; 85025; 87086; 96360; 99284; J7030

== ENCOUNTER 2020-03-31 03:31 | Observation (INO) | payer MEDICAID ==
[~2020-03-31] VITALS: Ht 162.6 cm; Wt 79.4 kg
[2020-03-31] MEDS ORDERED: ONDANSETRON HCL 4MG/2ML INJ IV PRN (04:15)
[2020-03-31 04:41] LABS: BG BASE EXCESS -18.4 mmol/L (-2.0-2.0); BG CARBOXYHEMOGLOBIN 0.3 % (0.5-1.5); BG DEOXYHEMOGLOBIN 2.8 % (0.0-5.0); BG FRACTION INSPIRED OXYGEN 21; BG HCO3 ACT 7.5 mmol/L (22.0-26.0); BG METHEMOGLOBIN 0.7 % (0.0-1.5); BG OXYGEN SATURATION 97.2 % (92.0-98.5); BG OXYHEMOGLOBIN 96.2 % (94.0-97.0); BG PCO2 19.2 mmHg (35.0-45.0); BG PO2 113.4 mmHg (75.0-100.0); BG SAMPLE SITE RIGHT RADIAL; BG TOTAL HEMOGLOBIN 11.5 g/dL (12.0-18.0); BG VENT MODE ROOM AIR
[2020-03-31] MEDS ORDERED: LACTATED RINGERS 1,000 ML IV SCH (05:00)
[2020-03-31 05:09] LABS: HEMATOCRIT. 36.1 % (36.0-48.0); HEMOGLOBIN. 10.8 g/dL (12.0-16.0); MEAN CORPUSCULAR HEMOGLOBIN 25.2 pg (28.0-32.0); MEAN CORPUSCULAR VOLUME 84.3 fL (81.0-99.0); PLATELET 326 x1000/uL (130-400); RED BLOOD CELL COUNT 4.28 mill/uL (4.2-5.4); RED CELL DISTRIBUTION WIDTH 15.3 % (11.6-14.6)
[2020-03-31 05:20] LABS: CHLORIDE 103 mEq/L (98-107)
[2020-03-31 05:30] LABS: CLARITY URINE CLEAR (CLEAR); COLOR URINE YELLOW (YELLOW); KETONES URINE 4+ (NEGATIVE); LEUKOCYTE ESTERASE URINE NEGATIVE (NEGATIVE); NITRITE URINE NEGATIVE (NEGATIVE); OCCULT BLOOD URINE NEGATIVE (NEGATIVE); PROTEIN URINE TRACE (NEGATIVE); SPECIFIC GRAVITY URINE 1.026 (1.005-1.030); UROBILINOGEN URINE 0.2 E.U./dL (0.2-1.0)
[2020-03-31 05:43] LABS: *AMPHETAMINES SCREEN URINE NEGATIVE (NEGATIVE); *BARBITURATES SCREEN URINE NEGATIVE (NEGATIVE); *BENZODIAZEPINES SCREEN URINE NEGATIVE (NEGATIVE); *COCAINE SCREEN URINE NEGATIVE (NEGATIVE); METHADONE URINE SCREEN NEGATIVE (NEGATIVE)
[2020-03-31 05:44] LABS: CANNABINOID URINE SCREEN NEGATIVE (NEGATIVE); OPIATES URINE SCREEN NEGATIVE (NEGATIVE); PHENCYCLIDINE URINE SCREEN NEGATIVE (NEGATIVE)
[2020-03-31] MEDS: INSULIN LISPRO 100 UNITS/ML SUBCUT SCH ×3 (05:46→08:48)
[2020-03-31 05:53] LABS: HEPATITIS B SURFACE ANTIGEN NEGATIVE
[2020-03-31] MEDS ORDERED: BLOOD SUGAR DIAGNOSTIC STRIP TEST SCH (06:00)
[2020-03-31] MEDS ORDERED: NIFEDIPINE 10MG CAPSULE PO SCH ×4 (06:15→14:00)
[2020-03-31] MEDS ORDERED: NIFEDIPINE 10MG CAPSULE PO ONE (06:15)
[2020-03-31 07:59] LABS: PARTIAL THROMBOPLASTIN TIME 26.1 sec (23.4-31.0); PROTHROMBIN TIME 10.3 sec (9.6-11.0)
[2020-03-31 08:04] LABS: PLATELET ESTIMATE NORMAL
[2020-03-31] MEDS ORDERED: CEFAZOLIN SODIUM 1000MG/VIAL ONE (08:29)
[2020-03-31] MEDS ORDERED: OXYTOCIN 10 UNITS/ML 1ML ONE (08:29)
[2020-03-31] MEDS ORDERED: SODIUM CHLORIDE 0.9% 10ML VIAL ONE (08:29)
[2020-03-31] MEDS ORDERED: EPHEDRINE SULFATE 50MG/ML VIAL ONE (08:30)
== END 2020-03-31 10:05 | disposition home or self-care (01) ==
LOC: 8 EST LDRP 03:31
PROVIDERS: ADMIT Obstetrics & Gynecology; ATTEND Obstetrics & Gynecology
DX: O24.913 Unspecified diabetes mellitus in pregnancy, third trimester (principal); Z20.828 Contact with and (suspected) exposure to other viral communicable diseases; Z3A.35 35 weeks gestation of pregnancy; Z83.3 Family history of diabetes mellitus; Z91.19 Patient's noncompliance with other medical treatment and regimen
CPT/HCPCS: 36415; 36600; 59025; 76805; 76818; 80053; 80305; 81003; 82375; 82805; 82962; 83036; 85025; 85610; 85730; 86592; 86703; 86762; 86850; 86900; 86901; 87340; 87426; 96361; 96372; 96374; G0378; J1815; J2405; J3490; 96360; 99281; J0690; A4315